=== PATIENT | female | born 1950 | race Caucasian/White ===

== ENCOUNTER 2020-03-24 10:44 | Day surgery (SDC) | payer MEDICARE ==
[~2020-03-24 10:44] MED LIST: FLONASE AL50 MCG/ACT; HYDROCO/APAP1 TA9 PO; LISINOP/HCTZ1 TAB PO; MELOXICAM7.5 MG PO
[2020-03-24 14:21] VITALS: BP 157/72
== END 2020-03-24 14:40 | disposition home or self-care (01) ==
LOC: ENDO 10:44 → ORM 14:00 → ENDO 14:30 → ORM 14:30 → ENDO 14:40
PROVIDERS: ATTEND Internal Medicine Gastroenterology
PROC: 0DBH8ZX Excision of Cecum, Via Natural or Artificial Opening Endoscopic, Diagnostic (ICD-10-PCS; principal; 2020-03-24)
PROC: 0D758ZZ Dilation of Esophagus, Via Natural or Artificial Opening Endoscopic (ICD-10-PCS; 2020-03-24)
PROC: 0DB48ZX Excision of Esophagogastric Junction, Via Natural or Artificial Opening Endoscopic, Diagnostic (ICD-10-PCS; 2020-03-24)
DX: K57.31 Diverticulosis of large intestine without perforation or abscess with bleeding (principal); D12.0 Benign neoplasm of cecum; K64.4 Residual hemorrhoidal skin tags; K64.8 Other hemorrhoids; K22.2 Esophageal obstruction; K29.71 Gastritis, unspecified, with bleeding; K29.81 Duodenitis with bleeding; K21.01 Gastro-esophageal reflux disease with esophagitis, with bleeding; K44.9 Diaphragmatic hernia without obstruction or gangrene; Z20.828 Contact with and (suspected) exposure to other viral communicable diseases